=== PATIENT | male | born 1960 | race Native Hawaiian/Other Pacific Islander ===

== ENCOUNTER 2022-10-03 17:28 | Emergency (ER) | payer OTHER ==
[~2022-10-03] VITALS: Ht 170.2 cm; Wt 75.8 kg
[2022-10-03 17:37] VITALS: BP 121/83; TEMP 98
[2022-10-03 18:31] LABS: PLATELET COUNT 210 K/uL (142-355)
== END 2022-10-03 19:09 | disposition home or self-care (01) ==
LOC: ED 17:28
PROVIDERS: Emergency Medicine Emergency Medical Services
DX: M79.661 Pain in right lower leg (principal)
CPT/HCPCS: 36415; 80048; 85027; 85379; 85610; 99282

== ENCOUNTER 2022-10-04 01:31 | Emergency (ER) | payer OTHER ==
[~2022-10-04] VITALS: Ht 170.2 cm; Wt 77.1 kg
[2022-10-04 02:30] VITALS: BP 142/90; TEMP 97.6
== END 2022-10-04 02:30 | disposition home or self-care (01) ==
LOC: ED 01:31
DX: M79.652 Pain in left thigh (principal); M79.661 Pain in right lower leg
CPT/HCPCS: 99282

== ENCOUNTER 2022-10-28 10:06 | Outpatient (CLI) | payer OTHER | END 2022-10-28 19:15 | disposition home or self-care (01) | LOC: RAD 10:06 | PROVIDERS: ATTEND Internal Medicine | DX: Z02.71 Encounter for disability determination (principal); M54.59 Other low back pain; M79.662 Pain in left lower leg ==